=== PATIENT | female | born 1950 | race Caucasian/White ===

== ENCOUNTER → 2021-04-10 14:38 | Outpatient (CLI) | payer OTHER, SELFPAY ==
--- NOTE | 2021-04-10 09:00 | DI.RAD_ITS ---
Exam(s) XR FINGER RT MIDDLE EXAM: XR FINGER RT MIDDLE CLINICAL HISTORY: crushed finger in door, r/o fx of tuft, crush injury rt middle finger. TECHNIQUE: 2D digital imaging was performed. COMPARISON: No exams were available for comparison FINDINGS: There is a nondisplaced transverse fracture through the tuft of the distal phalanx. No radiopaque fo reign body. No osseous lesions. IMPRESSION: DATA REPOSITORY: RADIATION DOSE DELIVERED:
== END ==
PROVIDERS: Visit Provider Physician Assistant
DX: S67.192A Crushing injury of right middle finger, initial encounter (principal); W23.1XXA Caught, crushed, jammed, or pinched between stationary objects, initial encounter
CPT/HCPCS: 73140